=== PATIENT | male | born 1955 | race Caucasian/White ===

== ENCOUNTER 2024-01-10 19:13 | Emergency (ER) | payer OTHER ==
[~2024-01-10] VITALS: Ht 170.2 cm; Wt 79.4 kg
[2024-01-10 19:23] VITALS: BP_SYST 130; PULSE 75; RESP 18; TEMP 98; O2SAT 94
[2024-01-10] MEDS: LIDOCAINE 1% 10 MG/ML, 20 ML MDV INJ ONE (20:45)
[2024-01-10 21:30] VITALS: BP_SYST 130; PULSE 75; RESP 18; TEMP 98; O2SAT 94
== END 2024-01-10 21:30 | disposition home or self-care (01) ==
LOC: SED 19:13
DX: L02.211 Cutaneous abscess of abdominal wall (principal)
CPT/HCPCS: 87070; 87075; 99284

== ENCOUNTER 2024-01-12 20:41 | Emergency (ER) | payer OTHER ==
[~2024-01-12] VITALS: Ht 170.2 cm; Wt 79.4 kg
[2024-01-12 20:54] VITALS: BP_SYST 139; PULSE 60; RESP 16; TEMP 98.9; O2SAT 98
[2024-01-12] MEDS ORDERED: BACITRACIN 1 GM OINT TP ONE (21:26)
[2024-01-12] MEDS: BACITRACIN ZINC 15 GM TOPICAL OINTMENT TP ONE (21:26)
[2024-01-12 21:30] VITALS: BP_SYST 139; PULSE 60; RESP 16; TEMP 98.9; O2SAT 98
[2024-01-12] MEDS: IBUPROFEN 600 MG TABLET PO ONE (21:40)
== END 2024-01-12 21:30 | disposition home or self-care (01) ==
LOC: SED 20:41
DX: Z48.00 Encounter for change or removal of nonsurgical wound dressing (principal)
CPT/HCPCS: 99282

== ENCOUNTER 2024-01-15 10:34 | Emergency (ER) | payer OTHER ==
[~2024-01-15] VITALS: Ht 170.2 cm; Wt 79.4 kg
[2024-01-15 10:38] VITALS: BP_SYST 139; PULSE 79; RESP 18; TEMP 98.3; O2SAT 95
[2024-01-15 11:06] VITALS: BP_SYST 139; PULSE 79; RESP 18; TEMP 98.3; O2SAT 95
== END 2024-01-15 11:09 | disposition home or self-care (01) ==
LOC: SED 10:34
DX: L02.211 Cutaneous abscess of abdominal wall (principal)
CPT/HCPCS: 99281